=== PATIENT | male | born 1990 | race Two or more races ===

== ENCOUNTER 2018-10-05 01:17 | Emergency (ER) | payer OTHER ==
[~2018-10-05] VITALS: Ht 188 cm; Wt 98.1 kg
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
[2018-10-05 02:15] VITALS: BP 164/102
[2018-10-05] MEDS ORDERED: AUGM500T34 PO (02:22)
[2018-10-05] MEDS ORDERED: AUGMENTIN 875 MG TAB PO ONE (02:30)
== END 2018-10-05 02:38 | disposition home or self-care (01) ==
LOC: EDBD 01:17 → M ED 01:17
DX: S02.401A Maxillary fracture, unspecified side, initial encounter for closed fracture (principal); S00.03XA Contusion of scalp, initial encounter; W22.8XXA Striking against or struck by other objects, initial encounter; Y92.410 Unspecified street and highway as the place of occurrence of the external cause; Y93.9 Activity, unspecified; Y99.9 Unspecified external cause status